=== PATIENT | female | born 1970 | race Caucasian/White ===

== ENCOUNTER 2017-01-02 13:09 | Emergency (ER) | payer MEDICARE, OTHER ==
[~2017-01-02] VITALS: Ht 167.6 cm; Wt 56.7 kg
[~2017-01-02 13:09] MED LIST: ALPR1TAB7 PO; ESCI10TA PO; MOBIC PO; ZOLP5TAB2 PO
[2017-01-02] MEDS ORDERED: LIDOCAINE VISCUS 2% 15 ML UDC MM ONE (13:45)
[2017-01-02] MEDS ORDERED: DICYCLOMINE HCL 10 MG/5 ML UDC LIQ PO ONE (13:45)
[2017-01-02] MEDS ORDERED: MAG HYDROX/AL HYDROX/SIMETH 30 ML LIQUID UDC PO ONE (13:45)
[2017-01-02] MEDS ORDERED: PANTOPRAZOLE SODIUM 40 MG VIAL IV ONE (13:45)
[2017-01-02] MEDS ORDERED: IV NORMAL SALINE 1000 ML BAG IV ONE (13:45)
[2017-01-02] MEDS ORDERED: ONDANSETRON 4 MG/2 ML VIAL IV ONE (13:45)
[2017-01-02] MEDS ORDERED: LIDOCAINE VISCUS 2% 15 ML UDC ONE (13:56)
[2017-01-02] MEDS ORDERED: ONDANSETRON 4 MG/2 ML VIAL ONE (13:56)
[2017-01-02] MEDS ORDERED: PANTOPRAZOLE SODIUM 40 MG VIAL ONE (13:57)
[2017-01-02] MEDS ORDERED: DICYCLOMINE HCL 10 MG/5 ML UDC LIQ ONE (13:57)
[2017-01-02] MEDS ORDERED: MAG HYDROX/AL HYDROX/SIMETH 30 ML LIQUID UDC ONE (13:57)
[2017-01-02 14:11] LABS: BASOPHILS # (AUTO) 0.1 K/uL (0.0-8.0); BASOPHILS % (AUTO) 0.8 % (0.0-2.0); EOSINOPHILS # (AUTO) 0.9 K/uL (0.0-0.7); HEMATOCRIT 39.3 % (37-47); HEMOGLOBIN 12.9 G/DL (12.0-16.0); LYMPHOCYTES # (AUTO) 2.5 K/uL (20.0-40.0); LYMPHOCYTES % (AUTO) 30.4 % (20.5-51.5); MEAN CORPUSCULAR HEMOGLOBIN 25.1 UUG (27.0-31.0); MEAN CORPUSCULAR HGB CONC 33 g/dL (32.0-37.0); MEAN CORPUSCULAR VOLUME 76.7 FL (81.0-99.0); MONOCYTES # (AUTO) 0.5 K/uL (2.0-10.0); MONOCYTES % (AUTO) 6.6 % (0.0-11.0); NEUTROPHILS # (AUTO) 4.1 K/uL (1.8-8.9); NEUTROPHILS % (AUTO) 51.2 % (38.5-71.5); PLATELET COUNT (AUTO) 281 K/UL (150-450); RED BLOOD CELL COUNT(AUTO) 5.13 MIL/UL (4.2-5.4); RED CELL DISTRIBUTION WIDTH 15.4 % (11.5-14.5); WHITE BLOOD COUNT (AUTO) 8.1 K/UL (4.0-11.2)
[2017-01-02] MEDS ORDERED: KETOROLAC TROMETHAMINE 30 MG INJ IVP ONE (14:15)
[2017-01-02] MEDS ORDERED: KETOROLAC TROMETHAMINE 30 MG INJ ONE (14:21)
[2017-01-02 14:27] LABS: ALBUMIN 3.8 g/dL (3.4-5.0); BILIRUBIN,DIRECT 0.1 mg/dL (0.0-0.2); BILIRUBIN,TOTAL 0.3 mg/dL (0.2-1.0); CALCIUM 8.7 mg/dL (8.5-10.1); CREATININE 0.7 mg/dL (0.6-1.3); POTASSIUM 4.2 mmol/L (3.5-5.1); TOTAL PROTEIN, SERUM 7.4 g/dL (6.4-8.2)
[2017-01-02] MEDS ORDERED: HYDROCODONE/APAP 5-325MG TABLET PO ONE (14:45)
[2017-01-02] MEDS ORDERED: HYDROCODONE/APAP 5-325MG TABLET ONE (15:06)
--- NOTE | 2017-01-02 15:53 | NUR ---
Patient discharged to home in stable conditon. Written and verbal after care instructions given. Patient verbalizes understanding of instructions.pt walks in steady gait accompanied by who was at beside the whole er stay. pt says feels better, deneis any nausea or light headed ness.
[2017-01-02 15:55] VITALS: BP 109/81
== END 2017-01-02 15:56 | disposition home or self-care (01) ==
LOC: ER 13:09
DX: R10.13 Epigastric pain (principal); J45.909 Unspecified asthma, uncomplicated; F31.9 Bipolar disorder, unspecified; K21.9 Gastro-esophageal reflux disease without esophagitis; F19.10 Other psychoactive substance abuse, uncomplicated
CPT/HCPCS: 36415; 83690; 84703; 85025; 93005; A4663; C9113; J1885; J2405; J7030

== ENCOUNTER 2019-08-25 19:33 | Emergency (ER) | END 2019-08-25 20:53 | disposition left against medical advice (07) | DX: Z53.21 Procedure and treatment not carried out due to patient leaving prior to being seen by health care provider (principal) ==

== ENCOUNTER 2019-12-31 20:13 | Emergency (ER) | payer OTHER ==
[~2019-12-31] VITALS: Ht 165.1 cm; Wt 55.3 kg
[~2019-12-31 20:13] MED LIST changes: +ALBU8HFA4 INH; -ALPR1TAB7 PO; -ESCI10TA PO; +LURA20TA PO; -MOBIC PO; -ZOLP5TAB2 PO
[2019-12-31] MEDS: MORPHINE SULFATE 2 MG/1 ML DISP.SYRIN IV ONE ×2 (20:30→21:25)
[2019-12-31] MEDS: ONDANSETRON 4 MG/2 ML VIAL IV ONE ×2 (20:30→21:26)
[2019-12-31 20:55] LABS: BASOPHILS % (AUTO) 0.7 % (0.0-2.0); EOSINOPHILS # (AUTO) 0.3 K/uL (0.0-0.7); EOSINOPHILS % (AUTO) 5.3 % (0.0-7.0); HEMATOCRIT 26.6 % (31.2-41.9); HEMOGLOBIN 8.2 g/dL (10.9-14.3); LYMPHOCYTES # (AUTO) 1.8 K/uL (20.0-40.0); LYMPHOCYTES % (AUTO) 29.2 % (20.5-51.5); MEAN CORPUSCULAR HEMOGLOBIN 20.7 uug (24.7-32.8); MEAN CORPUSCULAR HGB CONC 31 g/dL (32.3-35.6); MEAN CORPUSCULAR VOLUME 66.7 fL (75.5-95.3); MONOCYTES # (AUTO) 0.6 K/uL (2.0-10.0); MONOCYTES % (AUTO) 9.1 % (0.0-11.0); NEUTROPHILS # (AUTO) 3.5 K/uL (1.8-8.9); NEUTROPHILS % (AUTO) 55.7 % (38.5-71.5); PLATELET COUNT (AUTO) 286 K/uL (179-408); RED BLOOD CELL COUNT(AUTO) 3.98 MIL/uL (3.63-4.92); WHITE BLOOD COUNT (AUTO) 6.3 K/uL (3.8-11.8)
[2019-12-31 20:57] LABS: *BILIRUBIN,URIN NEGATIVE (NEGATIVE); *BLOOD, URINE NEGATIVE (NEGATIVE); *CLARITY,URINE CLEAR (CLEAR); *COLOR,URINE LIGHT YELLOW (YELLOW); *KETONES,URINE NEGATIVE (NEGATIVE); *UROBILINOGEN,URINE 0.2 E.U./dl (NORMAL); LEUKOCYTE ESTERASE ,URINE NEGATIVE (NEGATIVE); NITRITE, URINE NEGATIVE (NEGATIVE); PH,URINE 7.5 (5.0-8.0); UGLUCOSE NEGATIVE (NEGATIVE)
[2019-12-31 21:02] LABS: CREATININE 0.8 mg/dL (0.6-1.3)
[2019-12-31 21:07] LABS: BILIRUBIN,DIRECT 0.1 mg/dL (0.0-0.2); BILIRUBIN,TOTAL 0.2 mg/dL (0.2-1.0); TOTAL PROTEIN, SERUM 6.7 g/dL (6.4-8.2)
[2019-12-31] MEDS ORDERED: MORPHINE SULFATE 4 MG/1 ML DISP.SYRIN ONE (21:20)
[2019-12-31] MEDS ORDERED: ONDANSETRON 4 MG/2 ML VIAL ONE (21:20)
--- NOTE | 2019-12-31 22:09 | NUR ---
Patient back from CT in stable condition.
[2019-12-31] MEDS ORDERED: KETOROLAC TROMETHAMINE 30 MG INJ IVP ONE (22:45)
[2019-12-31] MEDS ORDERED: KETOROLAC TROMETHAMINE 30 MG INJ ONE (22:46)
--- NOTE | 2019-12-31 22:51 | NUR ---
Patient discharged to home in stable condition. Written and verbal after care instructions given. Patient verbalizes understanding of instructions. Stressed follow up or return to ER for worsening s/s. IV removed. Catheter intact and site benign. Pressure and 4x4 gauze applied to site. No bleeding noted.
[2019-12-31 22:59] VITALS: BP 128/79
== END 2019-12-31 23:06 | disposition home or self-care (01) ==
LOC: ER 20:15
DX: R10.11 Right upper quadrant pain (principal); D25.9 Leiomyoma of uterus, unspecified; K59.00 Constipation, unspecified; D64.9 Anemia, unspecified; N92.0 Excessive and frequent menstruation with regular cycle; G89.29 Other chronic pain; Z98.1 Arthrodesis status; J45.909 Unspecified asthma, uncomplicated; Z80.6 Family history of leukemia
CPT/HCPCS: 36415; 74176; 76705; 80048; 80076; 81001; 83690; 84484; 84702; 85025; 93005; 96374; 96375; 99285; J1885; J2270; J2405; 70030-TC; A4663; J7030

== ENCOUNTER 2020-01-04 22:31 | Emergency (ER) | payer OTHER ==
[~2020-01-04] VITALS: Ht 167.6 cm; Wt 53.5 kg
[~2020-01-04 22:31] MED LIST changes: -LURA20TA PO
[2020-01-04] MEDS ORDERED: LIDOCAINE VISCUS 2% 15 ML UDC MM ONE (22:45)
[2020-01-04] MEDS ORDERED: FAMOTIDINE. 20 MG/2 ML VIAL IV ONE ×2 (22:45→23:02)
[2020-01-04] MEDS ORDERED: MORPHINE SULFATE 2 MG/1 ML DISP.SYRIN IV ONE (22:45)
[2020-01-04] MEDS ORDERED: ONDANSETRON 4 MG/2 ML VIAL IV ONE (22:45)
[2020-01-04] MEDS ORDERED: MAG HYDROX/AL HYDROX/SIMETH 30 ML LIQUID UDC PO ONE (22:45)
[2020-01-04] MEDS ORDERED: IV NORMAL SALINE 500 ML BAG IV ONE (22:45)
--- NOTE | 2020-01-04 22:45 | NUR ---
PT PRESENTED TO ER IN STABLE CONDITION W/ STEADY GAIT C/O ABDOMINAL PAIN 06/06. PT STATES SHE HAS CHRONIC ABD PAIN BUT TODAY ITS BEEN A LOT WORSE THAN BEFORE.PT UNABLE TO SLEEP AND EAT PROPERLY DUE TO PAIN.
[2020-01-04] MEDS ORDERED: NAPR-1009 PO (22:48)
[2020-01-04] MEDS ORDERED: OXYC-131 PO (22:48)
[2020-01-04] MEDS ORDERED: MORPHINE SULFATE 4 MG/1 ML DISP.SYRIN ONE (23:01)
[2020-01-04] MEDS ORDERED: LIDOCAINE VISCUS 2% 15 ML UDC ONE (23:02)
[2020-01-04] MEDS ORDERED: MAG HYDROX/AL HYDROX/SIMETH 30 ML LIQUID UDC ONE (23:02)
[2020-01-04] MEDS ORDERED: ONDANSETRON 4 MG/2 ML VIAL ONE (23:02)
--- NOTE | 2020-01-05 00:02 | NUR ---
Patient discharged to home in stable condition. Written and verbal after care instructions given. Patient verbalizes understanding of instructions. Stressed follow up or return to ER for worsening s/s. PT INSTRUCTED NOT TO DRIVE. WAS HERE TO [employer] PT.ALL BELONGINGS W/PATIENT.
[2020-01-05 00:23] VITALS: BP 121/79
== END 2020-01-05 00:05 | disposition home or self-care (01) ==
LOC: ER 22:32
DX: D25.9 Leiomyoma of uterus, unspecified (principal); G89.29 Other chronic pain; R10.10 Upper abdominal pain, unspecified; D50.9 Iron deficiency anemia, unspecified; R11.0 Nausea; K21.9 Gastro-esophageal reflux disease without esophagitis; J45.909 Unspecified asthma, uncomplicated; Z79.899 Other long term (current) drug therapy; Z79.51 Long term (current) use of inhaled steroids; Z98.1 Arthrodesis status
CPT/HCPCS: 96361; 96374; 96375; 99284; J2270; J2405; J3490; A4663; J7030